=== PATIENT | female | born 1965 | race Caucasian/White ===

== ENCOUNTER 2016-10-15 06:30 | Day surgery (SDC) | payer MEDICAID ==
[~2016-10-15] VITALS: Ht 165.1 cm; Wt 73.0 kg
[~2016-10-15 06:30] MED LIST: CLON-365 PO; ESTR1TAB15 PO; FLUO40CA2 PO; GABA300C10 PO; LISI-167 PO; MONT10TA9 PO; MULT-658 PO; OXYC20TA2 PO; SOLI10TA PO; TOPI50TA77 PO; VIT1TABL46 PO
[2016-10-15] MEDS ORDERED: BUPIVACAINE/PF-EPI 0.5% 1:200K ONE (06:55)
[2016-10-15] MEDS ORDERED: THROMBIN 5,000 UNIT VIAL TP ONE (06:56)
[2016-10-15] MEDS ORDERED: BACITRACIN 50,000 UNIT ONE (06:56)
[2016-10-15] MEDS ORDERED: LACTATED RINGERS 1,000 ML IV SCH (07:10)
[2016-10-15 07:11] VITALS: BP 104/70
[2016-10-15] MEDS ORDERED: LIDOCAINE 1%, 2ML SQ PRN (07:30)
[2016-10-15] MEDS ORDERED: MIDAZOLAM 1 MG/ML, 2ML ONE ×2 (09:03)
[2016-10-15] MEDS ORDERED: FENTANYL PF 250 MCG/5ML ONE ×2 (09:03)
[2016-10-15] MEDS ORDERED: ROCURONIUM 10 MG/ML ONE (09:09)
[2016-10-15] MEDS ORDERED: ONDANSETRON 2MG/ML, 2ML ONE (09:09)
[2016-10-15] MEDS ORDERED: GLYCOPYRROLATE 0.2MG/1ML ONE (09:09)
[2016-10-15] MEDS ORDERED: DEXAMETHASONE 4 MG/ML, 1ML ONE (09:09)
[2016-10-15] MEDS ORDERED: METOCLOPRAMIDE 5 MG/ML, 2ML ONE (09:09)
[2016-10-15] MEDS ORDERED: PROPOFOL 10 MG/ML, 20ML ONE (09:09)
[2016-10-15] MEDS ORDERED: NEOSTIGMINE 1 MG/ML, 10ML ONE (09:09)
[2016-10-15] MEDS ORDERED: PHENYLEPHRINE 10 MG/ML ONE (09:09)
[2016-10-15] MEDS ORDERED: CEFAZOLIN 1,000 MG ONE (09:09)
[2016-10-15] MEDS ORDERED: HYDROmorphone 1 MG/ML, 1ML IV PRN (10:30)
[2016-10-15] MEDS ORDERED: LABETALOL 5MG/ML, 20ML IV PRN (10:30)
[2016-10-15] MEDS ORDERED: ALBUTEROL SULFATE 2.5 MG/3 ML NPPB PRN (10:30)
[2016-10-15] MEDS ORDERED: ONDANSETRON 2MG/ML, 2ML IVPush PRN (10:30)
[2016-10-15] MEDS ORDERED: MIDAZOLAM 1 MG/ML, 2ML IV PRN (10:30)
[2016-10-15] MEDS ORDERED: MEPERIDINE/PF 25MG/0.5ML IVPush PRN (10:30)
[2016-10-15] MEDS ORDERED: ACETAMINOPHEN 325 MG TABLET PO PRN (10:30)
[2016-10-15] MEDS ORDERED: hydrALAzine 20 MG/ML, 1ML IV PRN (10:30)
[2016-10-15] MEDS ORDERED: OXYcodone 5 MG/5 ML ORAL.SOL UDC PO PRN (10:30)
[2016-10-15] MEDS ORDERED: FENTANYL PF 100 MCG/2ML IV PRN (10:30)
[2016-10-15] MEDS ORDERED: PROMETHAZINE 25 MG/ML, 1ML IV PRN (10:30)
[2016-10-15] MEDS ORDERED: ACETAMINOPHEN 325 MG TABLET ONE (10:43)
[2016-10-15] MEDS ORDERED: OXYcodone 5 MG/5 ML ORAL.SOL UDC ONE (10:44)
== END 2016-10-15 13:40 | disposition home or self-care (01) ==
LOC: OUT 06:30
PROVIDERS: ATTEND Neurological Surgery
DX: M48.06 Spinal stenosis, lumbar region (principal); M47.26 Other spondylosis with radiculopathy, lumbar region; I10 Essential (primary) hypertension; J45.909 Unspecified asthma, uncomplicated; F17.210 Nicotine dependence, cigarettes, uncomplicated; G40.909 Epilepsy, unspecified, not intractable, without status epilepticus; Z88.6 Allergy status to analgesic agent
CPT/HCPCS: 63030; 72100; J0690; J1100; J2250; J2370; J2405; J2704; J2710; J2765; J3010; J7120; J3490